=== PATIENT | female | born 1980 | race African-American/Black ===

== ENCOUNTER 2018-07-28 08:18 | Day surgery (SDC) | payer OTHER ==
[2018-07-27 16:01] VITALS: BMI 27.4
[2018-07-28 08:54] LABS: BASO % 0.9 % (0-2.0); EOS % 4.6 % (0-4.5); HEMOGLOBIN 12.9 GM/dL (10.7-15.3); LYMPH % 41.3 % (8-40); MCH 30.8 pg (25.7-33.7); MCHC 33.9 g/dl (32.0-36.0); MEAN CELL VOLUME 90.8 fl (80-96); MEAN PLT VOLUME 7.5 fl (7.5-11.1); MONO % 8.7 % (3.8-10.2); NEUT % 44.5 % (42.8-82.8); PLATELET COUNT 329 K/MM3 (134-434); RBC 4.18 M/mm3 (3.60-5.2); RDW 12.9 % (11.6-15.6); WHITE BLOOD COUNT 4.3 K/mm3 (4.0-10.0)
[2018-07-28 09:13] LABS: INR 1.03 (0.83-1.09); PROTHROMBIN TIME (PATIENT) 12.2 SEC (9.7-13.0)
[2018-07-28 09:18] VITALS: TEMP 98.6
[2018-07-28 12:08] VITALS: BP 129/89; PULSE 90
--- NOTE | 2018-07-29 15:53 | PATH ---
Surgical Pathology Report Patient Name: SHRUTHI MATHUR [facility]. Rec. #: [id number] /Age/Gender: 1980 (Age: 38) / F Account: [id number] Location: RADIOLOGY INTER Taken: 07/28/2018 Received: 07/28/2018 Reported: 07/29/2018 Physicians: Chaz Dominguez M.D. Specimen(s) Received RIGHT NECK LYMPH NODE BX Clinical History 38-year-old female with history of RA Now with palpable node in right neck posterior triangle Final Diagnosis LYMPH NODE, RIGHT NECK, BIOPSY: SCANT FRAGMENTS OF BENIGN LYMPH NODE TISSUE. SCANT DETACHED FRAGMENTS OF NECROTIZING GRANULOMATOUS INFLAMMATION. AFB STAIN IS NEGATIVE FOR ACID-FAST BACILLI. PAS AND GMS STAINS ARE NEGATIVE FOR FUNGAL ORGANISMS. Note: Diagnosis is limited due to the scant nature of the specimen. Electronically Signed Nikki Atwood M.D. Gross Description Received in formalin, labeled "right neck lymph node biopsy" is a 0.3 x 0.3 x 0.1 cm aggregate of dark moraes tissue. Entirely submitted in one cassette. AE/07/28/2018 ebram/07/28/2018
== END 2018-07-28 12:21 | disposition home or self-care (01) ==
LOC: JRADIR 08:18
PROVIDERS: ATTEND Specialist
PROC: 07B13ZX Excision of Right Neck Lymphatic, Percutaneous Approach, Diagnostic (ICD-10-PCS; principal; 2018-07-28)
DX: D36.0 Benign neoplasm of lymph nodes (principal)
CPT/HCPCS: 36415; 76098-TC-FY; 76942-TC; 84703; 85025; 85610; 88305-TC; 88312-TC